=== PATIENT | female | born 1960 | race Caucasian/White ===

== ENCOUNTER 2018-03-01 17:29 | Emergency (ER) | payer BC ==
[~2018-03-01 17:29] MED LIST: Iopamidol 370 76% 100 ML VIAL ONE
[2018-03-01] MEDS ORDERED: Fentanyl 100 MCG/2 ML VIAL ONE ×2 (18:29→20:17)
[2018-03-01 18:34] LABS: Bilirubin Negative (Negative); Blood, Urine Small (Negative); Clarity SLIGHTLY (Clear); Glucose, Urine (Dipstick) Negative (Negative); Leukocyte Negative (Negative); Nitrite Negative (Negative); Protein, Urine (Dipstick) Trace mg/dL (Neg-Trace); Specific Gravity, Urine 1.025 (1.005-1.030); Urobilinogen 0.2 mg/dL (0.2-1.0)
[2018-03-01 18:37] LABS: Bacteria/HPF Rare-Few HPF (None Seen); Crystals/HPF None Seen HPF (Negative); Hyaline Casts/LPF NONE SEEN LPF (0-3 Hyaline); Other Casts/LPF None Seen LPF (0-3 Hyaline); Oval Fat Bodies/HPF None Seen HPF (None Seen); RBC/HPF 0-3 HPF (0-3); Renal Epithelial None Seen HPF (0-3); Sperm/HPF None Seen HPF (None Seen); Squamous Epithelial 0-3 HPF (0-3); Transitional Epithelial NONE SEEN HPF (0-3); Trichomonas/HPF None Seen HPF (None Seen); WBC/HPF None Seen HPF (0-3); Yeast-All Forms None Seen HPF (None Seen)
[2018-03-01 18:45] LABS: ALT (SGPT) 12 U/L (8-55); AST (SGOT) 15 U/L (5-34); Albumin 4.3 g/dL (3.5-5.0); Alkaline Phosphatase 94 U/L (40-150); Anion Gap 16 mmol/L (10-20); BUN (Urea Nitrogen) 8 mg/dL (9.8-20.1); Bilirubin, Total 0.5 mg/dL (0.2-1.2); Calc. Creatinine Clearance 0 mL/min (70-130); Calcium 9.8 mg/dL (7.8-10.44); Carbon Dioxide 24 mmol/L (22-29); Chloride 103 mmol/L (98-107); Estimated GFR-MDRD 71; Globulin 3.6 g/dL (2.4-3.5); Glucose 139 mg/dL (70-105); Potassium 3.9 mmol/L (3.5-5.1); Protein, Total 7.9 g/dL (6.0-8.3); Sodium 139 mmol/L (136-145)
[2018-03-01 18:47] LABS: Band 3 % (5-11); Hemoglobin 14.2 g/dL (12.0-16.0); Lymphocytes 1 % (21-51); MDiff Complete? YES; Mean Corpuscular HGB CONC 33.4 g/dL (32.0-36.0); Mean Corpuscular Volume 83.9 fL (78.0-98.0); Mean Platelet Volume 7.7 fL (7.4-10.4); Monocytes 8 % (0-10); Neutrophil 86 % (42-75); Platelet Count 456 thou/uL (130-400); RBC Distribution Width 12.2 % (11.5-14.5); Red Blood Cell (RBC) Count 5.05 mill/uL (4.20-5.40); White Blood Cell (WBC) Count 21.8 thou/uL (4.8-10.8)
[2018-03-01] MEDS ORDERED: Piperacillin/Tazobactam 3.375 GM VIAL ONE (19:28)
[2018-03-01] MEDS ORDERED: Sodium Chloride 0.9% 100 ML ONE (19:29)
[2018-03-01] MEDS ORDERED: Ondansetron PF 4 MG/2 ML Vial ONE (20:18)
--- NOTE | 2018-03-01 20:31 | CT ---
CT ABDOMEN AND PELVIS WITH CONTRAST: 03/01/[address] of the abdomen and pelvis was done for evaluation of right lower quadrant pain. Axial slice s were acquired, then coronal and sagittal reconstructions were done. The appendix is dilated and fluid filled, measuring 1.4 cm in diameter. its richey are thick and hyper emic. There is also an appendicolith or two near the base of the appendix. There is inflammatory str anding around it. No focal fluid collection or significant amount of free fluid was definitely seen. The only area in question was perhaps on the right side of the cul-de-sc, but this is less certain. N o free air was detected. The findings are consistent with acute appendicitis. There may or may not be perforation. The lung bases are clear. The liver, spleen, pancreas, gallbladder, adrenal glands, kidneys and abdom inal aorta showed no acute findings. CT of the pelvis was significant for the dilated appendix. The remainder of the bowel in the abdomen and pelvis appear unremarkable. There are no substantial fluid collections in the pelvis. Again, the only area in question is the right side of the cul-de-sac. IMPRESSION: Acute appendicitis with surrounding inflammatory reaction. A perforation is not ruled out. There is n o focal abscess or large fluid collection present. Findings discussed with Dr. Funez at 1920 on 03/01/18. POS: HOME
[2018-03-01] MEDS ORDERED: Ketorolac Tromethamine 30 MG/ML VIAL ONE (20:34)
== END 2018-03-01 20:42 | disposition short-term general hospital (02) ==
LOC: BURERS 17:29
DX: K35.80 Unspecified acute appendicitis (principal); Z79.899 Other long term (current) drug therapy
CPT/HCPCS: 74177; 80053; 81003; 81015; 85025; 96365; 96375; J1885; J2405; J2543; J3010; J7050